=== PATIENT | female | born 1960 | race Caucasian/White ===

== ENCOUNTER → 2017-03-08 | Outpatient (CLI) | payer OTHER | LOC: CIMAGING 14:27 | PROVIDERS: ATTEND Family Medicine | DX: Z12.31 Encounter for screening mammogram for malignant neoplasm of breast (principal) | CPT/HCPCS: G0202 ==

== ENCOUNTER → 2017-05-08 | Outpatient (CLI) | payer OTHER | LOC: BMCIMAGING 09:09 | PROVIDERS: ATTEND Family Medicine | DX: M25.561 Pain in right knee (principal) ==